=== PATIENT | female | born 1990 | race Caucasian/White ===

== ENCOUNTER 2017-09-30 05:56 | Day surgery (SDC) | payer BC ==
--- NOTE | 2017-09-28 17:02 | GHP ---
[f rep st] HISTORY AND PHYSICAL DATE OF ADMISSION: 09/30/2017 ADMITTING DIAGNOSES: 1. Complex ovarian cyst. 2. Pelvic pain. HISTORY OF PRESENT ILLNESS: Patient is a 27-year-old nulliparous female who presented to my office earlier this month with complaints of bloating, breast tenderness for the past 1-2 weeks. Patient slso states there is a stabbing sensation in her lower abdomen and some discomfort. The patient did discontinue control pills in August secondary to moodiness. The patient had an ultrasound done that revealed a uterus measuring 8 x 4 x 5cm with a posterior subserosal fibroid measuring 14 x 16 mm and a right complex cyst measuring 6 x 5 x 6 cm with flow; left ovary was normal and there was free fluid noted. The patient was told that the cyst will likely rupture, and told to go ahead and restart control pills after menses. Patient to have a followup ultrasound in 6 weeks and return if symptoms are not improving. Patient did present 2 days later with complaints again of severe stabbing pain associated with nausea as well as dizziness. She just started control pills a few days ago. There is pain with urination and pain to have a bowel movement. 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 The patient is sexually active. Denies any history of sexually transmitted diseases. 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 PAST OB HISTORY: The patient is nulliparous. 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 Cycles are irregular. The patient denies a history of abnormal Pap smears. Denies any exposure to sexually transmitted diseases. She has tried IUD and control pills. PAST MEDICAL HISTORY: Remarkable for kidney stones, anxiety, history of depression in high school, acne. PAST SURGICAL HISTORY: Kidney stone removal 2011. MEDICATIONS: OCPs, spironolactone. ALLERGIES: Amoxicillin, rash. FAMILY HISTORY: Mom with epilepsy. SOCIAL HISTORY: Patient is in a monogamous relationship for about 6 months. 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 Dairy free diet. Denies any tobacco or illicit drug use. She does socially drink 2 drinks per week. The patient is lactose intolerant. REVIEW OF SYSTEMS: A 10 point review of systems negative. Pertinent positives noted in HPI. LAB WORK: H and H 13.1, 30.3. Quantitative hCG negative. PHYSICAL EXAM: GENERAL: Patient is alert and oriented x3. No apparent distress. Well-nourished, well-developed female. VITAL SIGNS: Stable. Afebrile. LUNGS: Clear to auscultation bilaterally. HEART: Regular rate and rhythm. ABDOMEN: Soft, nontender, nondistended. PELVIC: Bimanual exam reveals uterus normal size, anteverted, nontender. There is fullness in the right adnexa as well as mild tenderness. Left adnexa with no masses and nontender. EXTREMITIES: Normal to inspection without calf tenderness. ASSESSMENT: 27 year old nulliparous female with a right complex ovarian cyst and pelvic pain that is not improving. PLAN: 1. Discussed surgery, diagnostic laparoscopy with evaluation of the pelvis and removal of cyst and/or ovary. Discussed its limitations, n.p.o. status, and postop recovery. 3. Surgical consents obtained. We discussed risks, benefits, alternatives of the surgery including, but not limited to bleeding, infection, and damage to surrounding organs. 4. Patient understands all risks of surgery, and wants to proceed at this time. 5. Antibiotics office coordinator receptionist to OR. 6. SCDs for DVT prophylaxis. /[id number]/MODL MARIA
[2017-09-30] MEDS ORDERED: CLINDAMYCIN 900 MG/DEXTROSE 50 ML IV ONE (06:12)
[2017-09-30] MEDS ORDERED: LR 1,000 ML IV ONE (06:13)
[2017-09-30] MEDS ORDERED: LIDOCAINE 1% 2 ML INJ ID PRN (06:13)
[2017-09-30] MEDS ORDERED: BUPIVACAINE 0.5% 30 ML SDV ONE (06:20)
[2017-09-30] MEDS ORDERED: SILVER NITRATE APPLICATOR 1 APPL TP ONE (06:20)
[2017-09-30] MEDS ORDERED: MIDAZOLAM 2 MG/2 ML VIAL IVP ONE (06:58)
--- NOTE | 2017-09-30 06:58 | PDANEPAE ---
ANE History of Present Illness ovarian cyst ANE Past Medical History - Cardiovascular History Hx Hypertension: No Hx Arrhythmias: No Hx Chest Pain: No Hx Coronary Artery / Peripheral Vascular Disease: No Hx CHF / Valvular Disease: No Hx Palpitations: No Cardiovascular History Comment: BP RUNS LOW - Pulmonary History Hx COPD: No Hx Asthma/Reactive Airway Disease: No Hx Recent Upper Respiratory Infection: No Hx Oxygen in Use at Home: No Hx Sleep Apnea: No Sleep Apnea Screening Result - Last Documented: Negative Pulmonary History Comment: EXERCISE INDUCES ASTHMA WHEN YOUNGER - Neurologic History Hx Cerebrovascular Accident: No Hx Seizures: No Hx Dementia: No - Endocrine History Hx Diabetes: No Hypothyroid: No Hyperthyroid: No Obesity: no - Renal History Hx Renal Disorders: Yes Renal History Comment: KIDNEY STONES - Liver History Hx Hepatic Disorders: No - Neurological & Psychiatric Hx Hx Neurological and Psychiatric Disorders: No - Cancer History Hx Cancer: No - Congenital Disorder History Hx Congenital Disorders: No - GI History GERD: no Hx Gastrointestinal Disorders: Yes Gastrointestinal History Comment: POSS IBS - Other Health History Other Health History: ANEMIA LONG IN PAST - Chronic Pain History Chronic Pain: No - Surgical History Prior Surgeries: KIDNEY STONE REMOVAL ANE Review of Systems Review of Systems: - Exercise capacity METS (RN): 6 METS ANE Patient History - Allergies Allergies/Adverse Reactions: amoxicillin Allergy (Verified 09/29/17 17:08) Rash - Home Medications Home Medications: Herbals/Supplements -Info Only 09/29/17 [Last Taken 09/29/17] Spironolactone 09/29/17 [Last Taken 09/29/17] Multivitamin (*) 09/30/17 [Last Taken 09/29/17] - NPO status NPO Since - Liquids (Date): 09/29/17 NPO Since - Liquids (Time): 21:00 NPO Since - Solids (Date): 09/29/17 NPO Since - Solids (Time): 21:00 - Anes Hx Anes Hx: no prior problems - Smoking Hx Smoking Status: Never smoked - Alcohol Use Alcohol Use: Other (1 -2 drinks/week) - Family Anes Hx Family Anes Hx: none Family Hx Anesthesia Complications: NEG ANE Labs/Vital Signs - Labs Result Diagrams: 09/30/17 06:51 - Vital Signs Blood Pressure: 93/57 Heart Rate: 62 Respiratory Rate: 20 O2 Sat (%): 98 Height: 165.1 cm Weight: 56.699 kg ANE Physical Exam - Airway Neck exam: FROM Mallampati Score: Class 1 Mouth exam: normal dental/mouth exam - Pulmonary Pulmonary: clear to auscultation - Cardiovascular Cardiovascular: regular rate and rhythym - ASA Status ASA Status: II ANE Anesthesia Plan Anesthesia Plan: general endotracheal anesthesia
[2017-09-30] MEDS ORDERED: DEXAMETHASONE 4 MG/ML VIAL ONE (07:05)
[2017-09-30] MEDS ORDERED: PROPOFOL 200 MG/20 ML VIAL ONE ×2 (07:05)
[2017-09-30] MEDS ORDERED: ROCURONIUM 50 MG/5 ML VIAL ONE (07:05)
[2017-09-30] MEDS ORDERED: fentaNYL 250 MCG/5 ML INJ ONE (07:05)
--- NOTE | 2017-09-30 07:16 | PDHPUP ---
History & Physical Update H&P update statement: This history and physical update is based on an assessment of the patient which was completed after admission or registration (within 24 hours), but prior to the surgery/procedure. H&P update: H&P reviewed & patient examined, no change in patient's condition since H&P completed
[2017-09-30] MEDS ORDERED: ONDANSETRON 4 MG/2 ML VIAL ONE (08:27)
[2017-09-30] MEDS ORDERED: HYDROCODONE/APAP 5/325 TAB PO PRN (08:28)
[2017-09-30] MEDS ORDERED: fentaNYL 100 MCG/2 ML INJ IVP PRN (08:28)
[2017-09-30] MEDS ORDERED: NALOXONE HCL 0.4 MG/ML INJ IVP PRN (08:28)
[2017-09-30] MEDS ORDERED: oxyCODONE IR 5 MG TAB PO PRN (08:28)
[2017-09-30] MEDS ORDERED: ALBUTEROL 3 ML DEYVIAL IH PRN (08:28)
[2017-09-30] MEDS ORDERED: GLYCOPYRROLATE 0.2 MG/1 ML VIAL ONE ×2 (08:31)
[2017-09-30] MEDS ORDERED: NEOSTIGMINE METHYLSULFATE 3 MG/3 ML SYR ONE (08:31)
[2017-09-30] MEDS ORDERED: KETOROLAC 30 MG/1 ML SDV ONE (08:45)
--- NOTE | 2017-09-30 08:48 | POSTOPPROG ---
Post Op Note Date of Operation: 09/30/17 Surgeon: Kylah Billings Lpn Medical Assistant: SHAMIR Cifuentes Anesthesiologist: Kurtis Tucker Anesthesia: GET(General Endotracheal) Pre-op Diagnosis: R complex ovarian cyst; Pelvic pain Post-op Diagnosis: R complex ovarian cyst; Pelvic pain; Hemorrhagic R ovarian cyst-ruptured Indication: 27 y/o nulliparous female with persistent pelvic pain and complex R cyst Procedure: Dx Laparoscopy with aspiration of R hemorrhagic cyst Findings: Grossly nml appearing ut, tubes and L ov; R ovary 4 cm-hemorrhagic- ruptured Inf/Abcess present in the surg proc area at time of surgery?: No Depth: Organ Space EBL: Minimal (5 cc) Total fluids administered: 600 cc UO: 50 cc clear urine at end Complications: None Specimen(s): None
[2017-09-30 09:19] VITALS: TEMP 98.2
[2017-09-30 09:28] VITALS: RESP 15; O2SAT 99
[2017-09-30 09:37] VITALS: PULSE 54
[2017-09-30 09:40] VITALS: BP 99/61
--- NOTE | 2017-09-30 10:50 | GOP ---
[f rep st] OPERATIVE REPORT DATE OF OPERATION: 09/30/2017 SURGEON: Kylah Billings DO POINT OF CARE TECHNICIAN: SHAMIR Wheatley. ANESTHESIA: General endotracheal. ANESTHESIOLOGIST: Kurtis Tucker MD. PREOPERATIVE DIAGNOSIS: 1. Complex right ovarian cyst. 2. Pelvic pain. POSTOPERATIVE DIAGNOSIS: 1. Complex right ovarian cyst. 2. Pelvic pain. 3. Right hemorrhagic cyst, ruptured. PROCEDURE PERFORMED: Diagnostic laparoscopy with aspiration of right hemorrhagic ovarian cyst. FINDINGS: Uterus grossly normal appearing as well as left tube, and left ovary. Right tube grossly normal appearing. Right ovary was enlarged to about 4-5 cm with blood consistent with a hemorrhagic cyst noted to start rupturing. There was blood noted in the posterior cul-de-sac. Upper abdomen grossly normal appearing. Appendix not visualized. SPECIMENS: None. ESTIMATED BLOOD LOSS: 5 cc. INDICATIONS: Patient is a 27-year-old nulliparous female who presented to the office earlier this month with complaints of pelvic pain, bloating, and dizziness. She had an ultrasound that demonstrated a 6 x 6 cm complex right ovarian cyst. The patient was given torsion precautions and discussed that it may rupture and recommended to start the pill to prevent the formation of these cysts. The patient started the pill, but continued to have persistent pain. 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 Discussed proceeding with a diagnostic laparoscopy with removal of cyst and/or ovary. We discussed risks, benefits, alternatives of the procedure including, but not limited to, bleeding , infection, and damage to surrounding organs. The patient understands all risks of surgery, and wants to proceed at this time. Patient was properly consented. DESCRIPTION OF PROCEDURE: The patient was taken to the operating room where general anesthesia was obtained without difficulty. Patient was placed in dorsal lithotomy position, prepped and draped in normal sterile fashion. Damon catheter was placed. An open ended speculum was placed in the patient's vagina. The anterior lip of the cervix was grasped with an Allis clamp. The cervix was nulliparous, so an os finder was used and then the uterus was able to be sounded to 7 cm. An acorn uterine manipulator was then advanced up inside the cervix to provide a means to manipulate the uterus. We then turned our attention to the abdomen and after injecting 0.5% plain Marcaine, an infraumbilical stab incision was made with a knife. The Veress needle was placed in the incision while tenting the abdominal wall. Aspiration was negative. Pneumoperitoneum was obtained with CO2 gas. A 5 mm trocar was then advanced under direct visualization using a 0 degree laparoscope into the abdomen with good visualization of the pelvis. After injection of more local, a 5 mm skin incision was made in the left lower quadrant and another 5 mm skin incision was made in the right lower quadrant. Atraumatic trocars were placed under visualization. The patient was then placed in Trendelenburg position. Pelvic findings noted above. At this time, using a grasper, the right ovary was stabilized and using the needlepoint with attached syringe, the hemorrhagic cyst was drained with about 50 cc of bloody fluid. The cyst then collapsed and appeared half its size. The incision site did appear hemostatic. The blood noted in the cul-de-sac was suctioned. The pelvis was then irrigated with normal saline and again the ovary appeared hemostatic. The right ureter was identified and peristalsis noted. All instruments were then taken out of the abdomen under direct visualization. Hemostasis was noted. Air was then allowed to escape from the abdomen. All skin incisions were closed with Dermabond. Damon catheter was then removed as well as the uterine acorn manipulator and the Allis clamp without any bleeding noted from the cervix. No complications. Patient tolerated the procedure well. Sponge, lap, needle, instrument count correct x2. The patient was then awakened, taken out of dorsal lithotomy position and taken to PACU in stable condition. IV FLUIDS: 600 cc LR. URINE OUTPUT: 50 cc of clear urine at end of procedure. /[id number]/MODL MTDD
--- NOTE | 2017-09-30 11:22 | POSTANESTH ---
Post Anesthetic Evaluation Cardiovascular Status: Normal, Stable Respiratory Status: Normal, Stable Level of Consciousness/Mental Status: Can Participate in Eval Pain Control: Adequate, Prn Tx Ordered Nausea/Vomiting Control: Adequate, Prn Tx Ordered Complications Possibly Related to Anesthesia: None Noted
== END 2017-09-30 10:15 | disposition home or self-care (01) ==
LOC: FSGY 05:56
PROVIDERS: ATTEND Obstetrics & Gynecology
PROC: 0WJG4ZZ Inspection of Peritoneal Cavity, Percutaneous Endoscopic Approach (ICD-10-PCS; principal; 2017-09-30 07:30)
PROC: 0U904ZZ Drainage of Right Ovary, Percutaneous Endoscopic Approach (ICD-10-PCS; principal; 2017-09-30 07:30)
DX: N83.201 Unspecified ovarian cyst, right side (principal); D25.2 Subserosal leiomyoma of uterus
CPT/HCPCS: J1100; J1885; J2250; J2405; J2704; J2710; J3010

== ENCOUNTER → 2018-08-19 | Outpatient (CLI) | payer BC | LOC: FIMAGING 12:02 | PROVIDERS: ATTEND Nurse Practitioner Women's Health | DX: N63.21 Unspecified lump in the left breast, upper outer quadrant (principal) ==

== ENCOUNTER → 2018-08-22 | Outpatient (CLI) | payer BC | LOC: FIMAGING 08:34 | PROVIDERS: ATTEND Nurse Practitioner Women's Health | DX: R92.8 Other abnormal and inconclusive findings on diagnostic imaging of breast (principal) ==

== ENCOUNTER → 2018-11-04 | Outpatient (CLI) | payer BC | LOC: FIMAGING 14:00 | PROVIDERS: ATTEND Physician Assistant Medical | DX: N20.1 Calculus of ureter (principal) ==